=== PATIENT | female | born 1945 | race Caucasian/White ===

== ENCOUNTER 2018-02-15 11:07 | Outpatient (CLI) | payer MEDICARE, BC | END 2018-02-15 11:08 | disposition home or self-care (01) | LOC: BICMAMMO 11:07 | PROVIDERS: ATTEND Internal Medicine | DX: Z12.31 Encounter for screening mammogram for malignant neoplasm of breast (principal) | CPT/HCPCS: 77063; 77067 ==

== ENCOUNTER 2020-06-30 10:13 | Outpatient (CLI) | payer MEDICARE, BC ==
--- NOTE | 2020-06-30 12:31 | CT ---
CT NECK WITH AND WITHOUT CONTRAST PARATHYROID PROTOCOL: INDICATION: Abnormal parathyroid nuclear medicine study. Elevated calcium levels, hyper parathyroidism. COMPARISON: Correlation is made to nuclear medicine study of 06/08/2020. That exam revealed CT and sestamibi find ings of adenomas posterior to both thyroid lobes. The nodule posterior to the left lobe was felt to be more suspicious given that there is low attenuation on the noncontrast CT and lack of apparent iod ine content. A nodule in the posterior right lobe. More consistent with a thyroid adenoma. FINDINGS: Review of the noncontrast images again shows a low-density soft tissue nodule posterior to the left l obe of the thyroid abutting the posterolateral wall of the esophagus which measures approximately 5 x 10 mm in the axial plane. Both lobes of the thyroid are heterogeneous and there is evidence of multiple small thyroid nodules. There is a more dominant nodule extending from the posterior right lobe which was described on the p rior nuclear medicine study. This has a low-density center with some surrounding peripheral iodine d ensity. This nodule measures approximately 12 mm. The soft tissue nodule posterior to the left lobe shows no significant attenuation on the noncontrast images. It shows diffuse homogeneous enhancemen t on the postcontrast images and is suspicious for a parathyroid adenoma. Review of soft tissues of the neck show symmetric parotid glands and submandibular glands. The nasop harynx, oropharynx, and hypopharynx appear unremarkable. Parapharyngeal space, retropharyngeal space , and power shovel operator space unremarkable. The carotid space is unremarkable. The internal carotid arteries are tortuous and have a retropharyn geal position. No evidence of carotid stenosis. Nonspecific cervical chain lymph nodes are seen most pronounced at levels II. These are all subcenti meter and with the largest being IIB lymph node on the right posterior to the internal jugular measur ing approximately 1.0 cm. There are also nonspecific level IV nodes. A few nonspecific level V node s are seen posteriorly measuring up to 1.0 cm. The visualized lung [place] show stranding in the ante rior upper lobes. Visualized paranasal sinuses are clear. There are degenerative changes in the cer vical spine. IMPRESSION: 1. Mildly enlarged heterogeneous thyroid with multiple low-density nodules seen in both lobes of the thyroid. There is a more dominant nodule posterior right lobe corresponding to the area of uptake s een on recent sestamibi scan. 2. There is a nodule posterior to the left lobe of the thyroid suspicious for parathyroid adenoma. This nodule is low-attenuation on noncontrast studies but exhibits avid enhancement on the postcontra st images. 3. Nonspecific cervical chain lymph nodes which are symmetric bilaterally. POS: AH
[2020-06-30] MEDS ORDERED: Iopamidol 370 76% 100 ML VIAL ONE (12:58)
[2020-06-30] MEDS ORDERED: Iopamidol 370 76% 50 ML VIAL FS ONE (12:58)
== END 2020-06-30 10:14 | disposition home or self-care (01) ==
LOC: SCSCT 10:13 → CT 10:14
PROVIDERS: ATTEND Otolaryngology Plastic Surgery within the Head & Neck
DX: E21.3 Hyperparathyroidism, unspecified (principal); E04.2 Nontoxic multinodular goiter
CPT/HCPCS: 70492; 82565; Q9967

== ENCOUNTER 2021-10-06 09:50 | Outpatient (CLI) | payer MEDICARE, BC | END 2021-10-06 09:51 | disposition home or self-care (01) | LOC: BICMAMMO 09:50 | PROVIDERS: ATTEND Internal Medicine | DX: Z12.31 Encounter for screening mammogram for malignant neoplasm of breast (principal); Z85.820 Personal history of malignant melanoma of skin | CPT/HCPCS: 77063; 77067 ==